=== PATIENT | male | born 1990 | race African-American/Black ===

== ENCOUNTER 2025-08-21 08:29 | Emergency (ER) | payer BC ==
[~2025-08-21] VITALS: Ht 182.9 cm; Wt 95.3 kg
[2025-08-21 08:36] VITALS: BP 151/90
[2025-08-21] MEDS: IV NORMAL SALINE 1000 ML BAG IV ONE (09:43)
[2025-08-21] MEDS ORDERED: THIAMINE HCL 200 MG/2 ML VIAL ONE (09:44)
[2025-08-21] MEDS ORDERED: PHENOBARBITAL SODIUM 130 MG/1 ML DISP.SYRIN ONE (09:44)
[2025-08-21] MEDS: PHENOBARBITAL SODIUM 130 MG/1 ML DISP.SYRIN IV ONE (09:49)
[2025-08-21] MEDS: THIAMINE HCL 200 MG/2 ML VIAL IV ONE (09:49)
[2025-08-21 09:53] LABS: PLATELET COUNT (AUTO) 316 K/uL (152-348); RED BLOOD CELL COUNT(AUTO) 4.64 MIL/uL (4.06-5.63); RED CELL DISTRIBUTION WIDTH 12.9 % (12.1-16.2); WHITE BLOOD COUNT (AUTO) 5.4 K/uL (3.6-10.2)
[2025-08-21 10:36] LABS: CREATININE 0.9 mg/dL (0.6-1.3); SODIUM SERUM 143 mmol/L (136-145); UREA NITROGEN, BLOOD 10 mg/dL (7-18)
[2025-08-21 10:39] LABS: ETHANOL < 3 MG/DL (0-10)
[2025-08-21 10:41] LABS: ASPARTATE AMINOTRANSFERASE 58 U/L (15-37); TOTAL PROTEIN, SERUM 7.8 g/dL (6.4-8.2)
[2025-08-21 11:32] VITALS: BP 147/85; O2SAT 99
[2025-08-21] MEDS ORDERED: CHLO25CA22 PO (15:52)
== END 2025-08-21 11:33 | disposition home or self-care (01) ==
LOC: ER 08:29
DX: F10.239 Alcohol dependence with withdrawal, unspecified (principal); E11.9 Type 2 diabetes mellitus without complications; F17.200 Nicotine dependence, unspecified, uncomplicated; K85.90 Acute pancreatitis without necrosis or infection, unspecified; Z59.71 Insufficient health insurance coverage; Z87.19 Personal history of other diseases of the digestive system; Y90.9 Presence of alcohol in blood, level not specified
CPT/HCPCS: 80076; 80048; 82140; 83690; 85025; 85730; 84484; 36415; 99284; 96361; 96374; 96375; 80320; J2560; J3411; J7040; A4606; A4663; G0480